=== PATIENT | male | born 1955 | race Two or more races ===

== ENCOUNTER → 2024-11-24 | Outpatient (CLI) | payer OTHER ==
[~2024-11-24] MED LIST: GADOTERATE MEG 10 MMOL/20ml INJ (0.5MMOL/ml) IV ONE; IOHEXOL 300 MG/ML 100ML BOTTLE IJ ONE; LIDOCAINE 2% (LOCAL ANESTH.) PF 5ml SDV ONE
--- NOTE | 2024-11-24 12:14 | DVH ---
XY FLUOROGUIDANCE FOR NEEDLE PLAC HISTORY: RIGHT HIP PAIN COMPARISON: None PROCEDURE: The risks and benefits of the procedure including infection, hemorrhage and technical failure were di scussed with the patient, who agreed to proceed. The patient was positioned supine on the fluoroscopy table. Time out was performed. The right hip was localized using fluoroscopy, and the location on the skin for needle insertion was marked. The regio n was prepped and draped using routine sterile technique. Approximately 2 cc of lidocaine was injecte d for local anesthesia. A 21 gauge spinal needle was inserted, and intra-articular location was confi rmed by injection of less than 1 cc of iodinated contrast. 0.1 mL gadolinium and 10 mL saline was the n injected for MRI arthrogram. Fluoroscopy time was 0.4 minutes. The patient was informed of the temporary precautions to take following the procedure as well as of t he potential signs and symptoms which may indicate the need to contact physician, and expressed unde rstanding of this discussion. IMPRESSION: Gadolinium injection in the right hip for MRI arthrogram.
== END | disposition home or self-care (01) ==
LOC: XYW 09:43
PROVIDERS: ATTEND Family Medicine
DX: S70.01XA Contusion of right hip, initial encounter (principal); M25.551 Pain in right hip; X58.XXXA Exposure to other specified factors, initial encounter; Y93.89 Activity, other specified; Y92.89 Other specified places as the place of occurrence of the external cause; Y99.8 Other external cause status
CPT/HCPCS: 27093; 77002; A9575; J2003; Q9967